=== PATIENT | female | born 1955 | race African-American/Black ===

== ENCOUNTER 2025-08-16 14:39 | Emergency (ER) | payer MEDICARE, OTHER ==
[~2025-08-16] VITALS: Ht 157.5 cm; Wt 95.0 kg
[~2025-08-16 14:39] MED LIST: AMAN-17 PO; ASPI-1160 PO; LIP40 PO; METF750T46 PO; [UNRECOGNIZED DRUG - CODE] PO
[2025-08-16 14:55] VITALS: O2SAT 99
[2025-08-16 16:53] LABS: BASOPHILS % 1.0 % (0.0-2.0); EOSINOPHILS % 3.1 % (0.0-5.0); HEMATOCRIT. 39.9 % (36.0-48.0); HEMOGLOBIN. 13.1 g/dL (12.0-16.0); LYMPHOCYTES % 23.3 % (20.0-50.0); MEAN PLATELET VOLUME 9.4 fl (7.4-10.4); MONOCYTES % 9.2 % (2.0-8.0); NEUTROPHILS % 63.4 % (40.0-76.0); PLATELET 239 x1000/uL (130-400); RED BLOOD CELL COUNT 4.43 mill/uL (4.2-5.4); RED CELL DISTRIBUTION WIDTH 15.7 % (11.6-14.6)
[2025-08-16] MEDS: DIAZEPAM 5 MG/ML 2ML SYR IV ONE (17:01)
[2025-08-16] MEDS: LIDOCAINE 5% PATCH TOP SCH (17:02)
[2025-08-16] MEDS: KETOROLAC 15MG/ML VIAL IV ONE (17:02)
[2025-08-16 17:06] LABS: CREATININE 0.8 mg/dL (0.6-1.0); UREA NITROGEN BLOOD 18 mg/dL (9-23)
[2025-08-16 17:08] LABS: ASPARTATE AMINOTRANSFERASE 18 IU/L (<34); BILIRUBIN TOTAL 0.4 mg/dL (0.1-1.0); PROTEIN TOTAL 6.7 g/dL (6.0-8.3)
[2025-08-16 17:16] LABS: C REACTIVE PROTEIN HIGH SENS 16.33 mg/l (<1.00)
[2025-08-16 17:43] LABS: ERYTHROCYTE SEDIMENTATION RATE 10 mm/hr (0-30)
[2025-08-16] MEDS ORDERED: DIAZ2TAB MT (18:10)
[2025-08-16] MEDS ORDERED: TOPUD PO (18:10)
[2025-08-16] MEDS ORDERED: NAPR-1486 MT (18:10)
[2025-08-16] MEDS ORDERED: LIDO-53 TP (18:10)
[2025-08-16 18:23] VITALS: BP 125/54; PULSE 75; RESP 18; TEMP 36.5; O2SAT 98
== END 2025-08-16 18:30 | disposition home or self-care (01) ==
LOC: ER 14:39
DX: M54.2 Cervicalgia (principal); Z79.899 Other long term (current) drug therapy; Z91.013 Allergy to seafood
CPT/HCPCS: 99284; 96374; 96375; 80053; 86141; 85025; 85651; 36415; 93005; J1885

== ENCOUNTER 2025-10-18 12:24 | Emergency (ER) | payer OTHER ==
[~2025-10-18] VITALS: Ht 170.2 cm; Wt 103.0 kg
[~2025-10-18 12:24] MED LIST changes: +DIAZ2TAB MT; +LIDO-53 TP; +NAPR-1486 MT; +TOPUD PO
[2025-10-18 12:25] VITALS: TEMP 97.9; O2SAT 98
[2025-10-18] MEDS: KETOROLAC 15MG/ML VIAL IM ONE (16:06)
[2025-10-18] MEDS ORDERED: ACET-2708 MT (17:06)
[2025-10-18] MEDS ORDERED: LIDO-53 TP (17:06)
[2025-10-18 17:44] VITALS: BP 137/56; PULSE 63; RESP 16; O2SAT 100
== END 2025-10-18 17:56 | disposition home or self-care (01) ==
LOC: ER 12:24
DX: M25.562 Pain in left knee (principal); M25.561 Pain in right knee; M54.50 Low back pain, unspecified; G35.D Multiple sclerosis, unspecified; M41.9 Scoliosis, unspecified; Z79.82 Long term (current) use of aspirin; Z79.899 Other long term (current) drug therapy; Z91.013 Allergy to seafood; W01.0XXA Fall on same level from slipping, tripping and stumbling without subsequent striking against object, initial encounter; Y93.89 Activity, other specified; Y92.89 Other specified places as the place of occurrence of the external cause; Y99.8 Other external cause status
CPT/HCPCS: 99283; 72100; 96372; J1885